=== PATIENT | male | born 1995 | race Caucasian/White ===

== ENCOUNTER 2017-03-15 14:46 | Inpatient (IN) | payer OTHER ==
[~2017-03-15] VITALS: Ht 177.8 cm; Wt 64.5 kg
[2017-03-15] MEDS ORDERED: VENLAFAXINE HCL75 M3 PO (15:10)
[2017-03-15] MEDS ORDERED: ZOLOFT50 MG PO (15:11)
[2017-03-15] MEDS ORDERED: TRAZODONE HCL50 MG PO (15:11)
[2017-03-15 15:42] LABS: HEMATOCRIT 46.8 % (38.0-50.0); MCH 29.1 PG (29.0-34.0); MCHC 35.5 G/DL (30.0-36.0); MEAN PLAT.VOLUME 10.3 uM^3 (9.0-12.4); PLATELET COUNT 235 K/uL (156-360); RBC DIS.WIDTH-CV 11.9 % (11.8-14.6); RBC DIS.WIDTH-SD 35.4 % (39-53); RED BLOOD COUNT 5.71 M/uL (4.00-5.50); WHITE BLOOD COUNT 6.4 K/uL (4.1-10.2)
[2017-03-15 15:58] LABS: CHLORIDE 105 mEq/L (99-109); POTASSIUM 3.9 mEq/L (3.7-5.4); SODIUM 140 mEq/L (136-147)
[2017-03-15 16:00] LABS: GLUCOSE 174 mg/dL (70-99)
[2017-03-15 16:01] LABS: ANION GAP 9 MEQ/L (2-14)
[2017-03-15 16:03] LABS: GFR ESTIMATE (CALCULATED) > 59 mL/min/; SERUM ETHYL ALCOHOL < 10 mg/dL
[2017-03-15 16:04] LABS: UREA NITROGEN (BUN) 16 mg/dL (9-23)
[2017-03-15 16:40] LABS: AMPHETAMINE NEGATIVE (500 ng/mL); BARBITURATES NEGATIVE (200 ng/mL); BENZODIAZEPINES NEGATIVE (150 ng/mL); COCAINE NEGATIVE (150 ng/mL); INTERNAL CONTROLS VALID? YES; METHADONE NEGATIVE (200 ng/mL); METHAMPHETAMINE NEGATIVE (500 ng/mL); OPIATES (MORPHINE) NEGATIVE (100 ng/mL); OXYCODONE NEGATIVE (100 ng/mL); PHENCYCLIDINE NEGATIVE (25 ng/mL); PROPOXYPHENE NEGATIVE (300 ng/mL); THC CANNABINOIDS NEGATIVE (50 ng/mL); TRICYCLIC ANTIDEPRESSANTS NEGATIVE (300 ng/mL)
[2017-03-15] MEDS ORDERED: MELATONIN5 M3 PO (17:11)
[2017-03-15] MEDS ORDERED: VITAMIN D31000 UNI1 PO (17:12)
[2017-03-15] MEDS ORDERED: CHILDREN'S MOT120 M2 PO (17:14)
[2017-03-15 17:26] VITALS: BP 130/88
[2017-03-15 17:33] VITALS: BP 130/88
[2017-03-16 08:06] VITALS: BP 130/63
[2017-03-16 15:53] VITALS: BP 131/74
[2017-03-17 07:37] VITALS: BP 143/74
[2017-03-17] MEDS ORDERED: TRAZODONE HCL50 MG PO (10:15)
[2017-03-17] MEDS ORDERED: SERTRALINE HCL100 MG PO (10:15)
[2017-03-17 10:31] VITALS: BP 148/79
== END 2017-03-17 14:00 | disposition home or self-care (01) | DRG 881 ==
LOC: EME 14:46 → EDOF 17:08 → 1WEST 17:08
PROVIDERS: Emergency Medicine
DX: F34.1 Dysthymic disorder (principal); F41.0 Panic disorder [episodic paroxysmal anxiety]; F33.9 Major depressive disorder, recurrent, unspecified; R45.851 Suicidal ideations; F41.9 Anxiety disorder, unspecified; Z91.19 Patient's noncompliance with other medical treatment and regimen
CPT/HCPCS: 80048; 85027; 90839; 99211 TC; 99281; 99285; G0480